=== PATIENT | male | born 1955 | race Caucasian/White ===

== ENCOUNTER → 2016-11-10 | Outpatient (CLI) | payer MEDICARE ==
--- NOTE | 2016-11-10 07:50 | US ---
EXAMINATION TYPE: US kidneys/renal and bladder DATE OF EXAM: 11/10/2016 COMPARISON: Prior MRI lumbar spine April 14, 2013. Prior bladder ultrasound September 10, 2014 CLINICAL HISTORY: N31.9 Neurogenic Bladder. EXAM MEASUREMENTS: Right Kidney: 11.2 x 4.1 x 4.3 cm Left Kidney: 11.2 x 5.3 x 4.2 cm Post Void Residual Volume: 9.8 mL Right Kidney: no evidence of hydronephrosis or mass Left Kidney: no evidence of hydronephrosis or mass Bladder: wnl as visualized Bilateral Jets seen: yes Normal Post Void Residual: yes Bladder is somewhat poorly distended on today's study and thus suboptimally evaluated. Slightly lobul ated thickened walled bladder is noted. Finding presumed product of known neurogenic bladder, other e tiologies are not excluded. Bilateral distal ureter jets are identified. After voiding tiny amount of residual urine is present. IMPRESSION: No hydronephrosis is evident bilaterally. No abnormal bladder distention.
== END | disposition home or self-care (01) ==
LOC: RADUSWWP 06:55
PROVIDERS: ATTEND Physical Medicine & Rehabilitation
DX: N31.9 Neuromuscular dysfunction of bladder, unspecified (principal); M51.35 Other intervertebral disc degeneration, thoracolumbar region; M47.817 Spondylosis without myelopathy or radiculopathy, lumbosacral region; R26.89 Other abnormalities of gait and mobility; M51.17 Intervertebral disc disorders with radiculopathy, lumbosacral region; M79.1 Myalgia; M47.12 Other spondylosis with myelopathy, cervical region
CPT/HCPCS: 76770